=== PATIENT | male | born 1970 | race Caucasian/White ===

== ENCOUNTER 2016-07-06 11:31 | Emergency (ER) | payer MEDICAID, OTHER ==
[2016-07-06] MEDS ORDERED: NS 0.9% 1000 ML* 1,000 ML IV ONE (11:33)
[2016-07-06] MEDS ORDERED: Ondansetron INJ* 2 MG/ML VIAL IV ONE (11:35)
--- NOTE | 2016-07-06 12:01 | RAD ---
HISTORY: Overdose COMPARISONS: None VIEWS:1: Single frontal portable view of the chest at 11:45 AM FINDINGS: LINES AND TUBES: None. CARDIOMEDIASTINAL SILHOUETTE: The cardiomediastinal silhouette is normal for portable technique. PLEURA: The costophrenic angles are sharp. No pleural abnormalities are noted. LUNG PARENCHYMA: The lungs are clear. ABDOMEN: The upper abdomen is clear. There is no subphrenic gas. BONES AND SOFT TISSUES: No bone or soft tissue abnormalities are noted. IMPRESSION: NO ACTIVE CARDIOPULMONARY DISEASE.
[2016-07-06 12:14] LABS: Urine Bacteria Absent (Absent); Urine Bilirubin Negative (Negative); Urine Glucose Negative (Negative); Urine Nitrite Negative (Negative); Urine Sperm Present (Absent)
[2016-07-06 12:24] LABS: Benzodiazepine Urine Screen None Detected (None Detect)
--- NOTE | 2016-07-06 12:27 | RAD ---
Indication: Heroin overdose. CT of the brain was performed without IV contrast. Ventricular structures are midline. No midline shift is noted. The extraction spaces are unremarkable. There is hydrocephalus noted with a ventriculoperitoneal shunt in place. No definite hemorrhage is noted. There are no prior studies available for comparison. IMPRESSION: Hydrocephalus. Ventriculoperitoneal shunt in place. No evidence of hemorrhage is noted.
[2016-07-06 12:30] LABS: Hematocrit 47 % (42-52); Hemoglobin 15.9 g/dl (14.0-18.0); Mean Corpuscular HGB Conc 34 g/dl (31-36); Mean Corpuscular Hemoglobin 31 pg (27-31); Mean Corpuscular Volume 90 fL (80-94); Mean Platelet Volume 7 um3 (7.4-10.4); Red Blood Count 5.22 10^6/ul (4.0-5.4); Red Cell Distribution Width 14 % (10.5-15); White Blood Count 12.2 10^3/ul (3.5-10.8)
[2016-07-06 12:52] LABS: ALT 76 U/L (7-52); AST 35 U/L (13-39); Albumin 4.4 g/dL (3.2-5.2); Alkaline Phosphatase 50 U/L (34-104); Anion Gap 4 mmol/L (2-11); Blood Urea Nitrogen 22 mg/dL (6-24); CO2 Carbon Dioxide 27 mmol/L (22-32); Calcium 9.4 mg/dL (8.6-10.3); Chloride 103 mmol/L (101-111); Creatine Kinase 91 U/L (10-223); EGFR African American 103.9 (>60); EGFR Non-African American 80.8 (>60); Globulin 3.3 g/dL (2-4); Glucose 139 mg/dL (70-100); Potassium 3.9 mmol/L (3.5-5.0); Sodium 134 mmol/L (133-145); Total Protein 7.7 g/dL (6.4-8.9)
[2016-07-06 12:53] LABS: Troponin I 0.01 ng/mL (<0.04)
[2016-07-06 13:22] LABS: Acetaminophen < 15 mcg/mL; Alcohol < 10 mg/dL (<10); Salicylate < 2.50 mg/dL (<30)
[2016-07-06 13:32] LABS: TSH (Thyroid Stimulating Horm) 0.72 mcIU/mL (0.34-5.60)
--- NOTE | 2016-07-06 13:46 | ED ---
Natacha Acevedo Erika, scribed for Osmar Lester MD on 07/06/16 at 1142 . 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 Patient reports that he snorted what he thought was heroin at 10:30 today at [facility]. The next thing patient recalls was that he woke up. Per witnesses, patient developed respiratory distress, and was given 2 doses of 0.4 mg IM narcan at [facility], and was then given two doses of 1 mg nasal narcan by EMS. EMS reports patient was fine again 2-3 minutes after they arrived. He did complain of nausea, and vomited 1x. Currently, patient reports no symptoms except for nausea. He denies headache, chest pain, and SOB. Patient reports this was the first time using heroin since 12/12/2015. Pt has a Hx drug abuse. PSHx CHAINMAN shunt s/p traumatic injury. He denies any FHx. Patient occasionally smokes and denies alcohol use. - History Of Current Complaint Stated Complaint: OVERDOSE Time Seen by Provider: 07/06/16 11:32 Hx Obtained From: Patient, EMS Onset/Duration of Drug/ETOH Abuse: Hours - 1 hour Ingestion History: Type/Name Of Drug - Possibly heroin, Approximate Time Of Ingestion - 10:30 Overdose Characteristics: Inhalation Timing Of Abuse: Recent Cessation For A Period Of - since December 2015 Severity Initially: Severe Severity Currently: Mild Alleviating Factor(s): Other - Narcan Associated Signs And Symptoms: Nausea, Vomiting, Other: - respiratory distress - resolved - Allergies/Home Medications Allergies/Adverse Reactions: Allergies Allergy/AdvReac Type Severity Reaction Status Date / Time No Known Allergies Allergy Verified 07/06/16 11:42 Home Medications: Home Medications Bupropion HCl [Wellbutrin Sr] 150 mg PO DAILY 07/06/16 [History Confirmed ] Gabapentin TAB(NF) [Neurontin 600 mg TAB(NF)] 1,800 mg PO TID 07/06/16 [History Confirmed 07/06/16] PMH/Surg Hx/FS Hx/Imm Hx Psychiatric History: Reports: Hx Substance Abuse - Surgical History Surgery Procedure, Year, and Place: CHAINMAN shunt - Family History Known Family History: Negative: Diabetes - Social History Alcohol Use: None Hx Substance Use: Yes Substance Use Type: Reports: Heroin Hx Tobacco Use: Yes Smoking Status (MU): Current Some Day Smoker Review of Systems Negative: Chest Pain Respiratory: Other - respiratory distress - resolved Negative: Shortness Of Breath Positive: Vomiting, Nausea Negative: Headache All Other Systems Reviewed And Are Negative: Yes Physical Exam - Summary Physical Exam Summary: VITAL SIGNS: Reviewed. GENERAL: Patient is a well developed and nourished male who is lying comfortable in the stretcher. Patient is not in any acute respiratory distress. HEAD AND FACE: ositive ecchymosis in the forehead, no skull depressions. No sinus tenderness. EYES: PERRLA, EOMI x 2, No injected conjunctiva, no nystagmus. No photophobia. EARS: Hearing grossly intact. Ear canals and tympanic membranes are within normal limits. MOUTH: Oropharynx within normal limits. NECK: Supple, trachea is midline, no adenopathy, no JVD, no carotid bruit, no c- spine tenderness, neck with full ROM. No meningeal signs, no Kernig's or brudzinskis signs. CHEST: Symmetric, no tenderness at palpation LUNGS: Clear to auscultation bilaterally. No wheezing or crackles. CVS: Regular rate and rhythm, S1 and S2 present, no murmurs or gallops appreciated. ABDOMEN: Soft, non-tender. No signs of distention. No rebound no guarding, and no masses palpated. Bowel sounds are normal. EXTREMITIES: FROM in all major joints, no edema, no cyanosis or clubbing. NEURO: Alert and oriented x 3. No acute neurological deficits. Speech is normal and follows commands. SKIN: Dry and warm Triage Information Reviewed: Yes Vital Signs On Initial Exam: Initial Vitals Temp Pulse Resp BP Pulse Ox 98.7 F 117 19 147/105 95 07/06/16 11:32 07/06/16 11:32 07/06/16 11:32 07/06/16 11:32 07/06/16 11:32 Vital Signs Reviewed: Yes Diagnostics - Vital Signs Vital Signs Temp Pulse Resp BP Pulse Ox 07/06/16 11:32 98.7 F 117 19 147/105 95 - Laboratory Result Diagrams: 07/06/16 12:07 07/06/16 12:07 Lab Statement: Any lab studies that have been ordered have been reviewed, and results considered in the medical decision making process. - Radiology CXR Radiology Interpretation Completed By: Radiologist - IMPRESSION: NO ACTIVE CARDIOPULMONARY DISEASE. - CT Brain CT CT Interpretation Completed By: Radiologist - IMPRESSION: Hydrocephalus. Ventriculoperitoneal shunt in place. No evidence of hemorrhage is noted. 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 Patient reports that he snorted what he thought was heroin at 10: 30 today at [facility]. The next thing patient recalls was that he woke up. Per witnesses, patient developed respiratory distress, and was given 2 doses of 0.4 mg IM narcan at [facility], and was then given two doses of 1 mg nasal narcan by EMS. EMS reports patient was fine again 2-3 minutes after they arrived. He did complain of nausea, and vomited 1x. Currently, patient reports no symptoms except for nausea. He denies headache , chest pain, and SOB. Patient reports this was the first time using heroin since 12/12/2015. Pt has a Hx drug abuse. PSHx CHAINMAN shunt s/p traumatic injury. He denies any FHx. Patient occasionally smokes and denies alcohol use. Bloodwork WNL except for WBC of 12.2 without bands. Glucose 139. UA with protein 1+, trace ketones, urine toxicology positive for opiates. Head CT shows hydrocephalus, ventriculoperitoneal shunt in place, and no evidence of hemorrhage is noted. CXR with no active disease. Before the pt came ot the ED he was given 4 doses of Narcan, and now pt is A&Ox3. He was given IV fluids and zofran for nausea, and right now the pt is asymptomatic. The pt continues to be A&Ox3 therefore the patient will be discharged home with follow up from his PCP. The pt was given advice on narcotic abuse and rehab centers. Pt understands and agrees. He will be discharged home. I discussed all the findings and test results with the patient. Patient was instructed to return to the emergency room immediately if any of the symptoms return or worsens. Patient understands and agrees. Plan of care was discussed with the patient and patient understands and agrees with the plan of care. All questions were answered at patient satisfaction. There were no further complaints or concerns. Patient is alert and oriented x 3. Patient vital signs are stable. Patient is to follow up with primary care physician in the next 2 to 3 days. Patient understands and agrees. - Diagnoses Differential Diagnosis/HQI/PQRI: Positive: Anxiety, Drug Abuse, Other - head contusion, overdose Provider Diagnoses: Heroin overdose Discharge - Discharge Plan Condition: Stable Disposition: HOME Patient Education Materials: Opioid Overdose (ED) Referrals: [facility] [place] [Outside] Additional Instructions: Please follow up with a PCP The documentation as recorded by the Natacha lawson Erika accurately reflects the service I personally performed and the decisions made by me, Osmar Lester MD.
[2016-07-06 14:01] VITALS: BP 135/77
== END 2016-07-06 14:00 | disposition home or self-care (01) ==
LOC: ED 11:31
DX: T40.1X1A Poisoning by heroin, accidental (unintentional), initial encounter (principal); R11.2 Nausea with vomiting, unspecified; R06.00 Dyspnea, unspecified; Z72.0 Tobacco use; Y92.89 Other specified places as the place of occurrence of the external cause
CPT/HCPCS: 36415; 70450; 71010; 80053; 80307; 80320; 80329; 81003; 81015; 82550; 83605; 84443; 84484; 85025; 93005; 96374; 99283; G0480; J2405

== ENCOUNTER → 2017-11-09 00:22 | Emergency (ER) | payer BC, MEDICAID ==
[~2017-11-09 00:22] MED LIST: Cephalexin CAP* 500 MG PO ONE; Mupirocin 2% OINT* TUBE TOPICAL ONE
--- NOTE | 2017-11-09 02:03 | UC ---
Skin Complaint HPI - HPI Summary HPI Summary: 4x4 inch abrasion left upper arm left upper arm with large amount of surrounding erythema, purulent drainage--happened 2-3 days ago on a piece of glass, patient has full rom, no swollen lymph tissue, streaking or fever - History of Current Complaint Chief Complaint: EDRashSkinAbscess Time Seen by Provider: 11/09/17 01:54 Stated Complaint: SKIN ISSUE/LT ARM Hx Obtained From: Patient Onset/Duration: Sudden Onset, Worse Since - past 24 hours Timing: Constant Pain Intensity: 7 Pain Scale Used: 0-10 Numeric Location: Discrete Character: Redness, Painful Aggravating Factor(s): Touch Alleviating Factor(s): Nothing Associated Signs & Symptoms: Positive: Negative - Allergy/Home Medications Allergies/Adverse Reactions: Allergies Allergy/AdvReac Type Severity Reaction Status Date / Time No Known Allergies Allergy Verified 07/06/16 11:42 Review of Systems Skin: Other - 4x4 inch abrasion left upper arm Is Patient Immunocompromised?: No All Other Systems Reviewed And Are Negative: Yes PMH/Surg Hx/FS Hx/Imm Hx Previously Healthy: No Psychological History: Depression - Surgical History Surgical History: Yes Surgery Procedure, Year, and 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 - Family History Known Family History: Negative: Diabetes - Social History Occupation: Employed Full-time Lives: With Family Alcohol Use: None Substance Use Type: Heroin Smoking Status (MU): Current Some Day Smoker - Immunization History Most Recent Influenza Vaccination: [id number] Physical Exam Triage Information Reviewed: Yes Appearance: Well-Appearing, No Pain Distress, Well-Nourished Vital Signs: Initial Vital Signs Temp 98 F 11/09/17 00:27 Pulse 84 11/09/17 00:27 Resp 20 11/09/17 00:27 BP 126/80 11/09/17 00:27 Pulse Ox 94 11/09/17 00:27 Vital Signs Reviewed: Yes Eye Exam: Normal Eyes: Positive: Conjunctiva Clear ENT Exam: Normal ENT: Positive: Normal ENT inspection, Hearing grossly normal. Negative: Trismus , Muffled voice, Hoarse voice, Dental tenderness, Sinus tenderness Dental Exam: Normal Neck exam: Normal Neck: Positive: Supple, Nontender, No Lymphadenopathy Respiratory Exam: Normal Respiratory: Positive: Chest non-tender, No respiratory distress, No accessory muscle use Cardiovascular Exam: Normal Cardiovascular: Positive: RRR, Pulses Normal, Brisk Capillary Refill Musculoskeletal Exam: Normal Musculoskeletal: Positive: Strength Intact, ROM Intact, No Edema Neurological Exam: Normal Neurological: Positive: Alert, Muscle Tone Normal Psychological Exam: Normal Skin Exam: Other Skin: Positive: Other - 4x $ inch abrasion with evidence of wound infection Course/Dx - Course Course Of Treatment: soap and water wash bid, bactrban, keflex, warm compress follow with pcp prn - Diagnoses Provider Diagnoses: left upper arm wound infection Discharge - Sign-Out/Discharge Documenting (check all that apply): Patient Departure - Discharge Plan Condition: Stable Disposition: HOME Prescriptions: Cephalexin CAP* [Keflex CAP*] 500 mg PO QID #24 cap Patient Education Materials: Wound Infection (ED), Acute Wound Care (ED), Warm Compress or Soak (ED) Forms: *Work Release Referrals: Amor Prater MD [Medical Doctor] - If Needed - Billing Disposition and Condition Condition: STABLE Disposition: Home
[2017-11-09 02:47] VITALS: BP 140/90
== END | disposition home or self-care (01) ==
LOC: ED 00:22
DX: S40.812A Abrasion of left upper arm, initial encounter (principal); L08.9 Local infection of the skin and subcutaneous tissue, unspecified; X58.XXXA Exposure to other specified factors, initial encounter; Y93.9 Activity, unspecified; Y92.9 Unspecified place or not applicable; F32.9 Major depressive disorder, single episode, unspecified; Z72.0 Tobacco use
CPT/HCPCS: 99283; A9270-GY